=== PATIENT | female | born 1960 | race African-American/Black ===

== ENCOUNTER 2023-06-30 19:20 | Inpatient (IN) | payer BC ==
[~2023-06-30] VITALS: Ht 170.2 cm; Wt 87.2 kg
[2023-06-30] MEDS ORDERED: levoFLOXacin 750MG/D5W 150 ML IV ONE ×2 (19:30→21:12)
[2023-06-30 19:44] LABS: ABG BASE EXCESS 0.3 mmol/L (-2.0-2.0); ABG HCO3 23.7 mmol/L (22.0-26.0); ABG PCO2 34.5 mmHg (35.0-48.0); ABG PH 7.455 (7.340-7.440); ABG SITE RIGHT RADIAL; ABG TOTAL HEMOGLOBIN 13.3 G/dL (12.0-16.0); AaDO2 95.1 mmHg; COHb 0.7 % (0.0-3.9); MetHb 0.2 % (0.0-1.5); O2Hb 93.6 % (94.0-97.0)
[2023-06-30] MEDS ORDERED: FERR-68 GT (19:47)
[2023-06-30] MEDS ORDERED: MULT-213 GT (19:47)
[2023-06-30] MEDS ORDERED: LORA0.5T48 GT (19:47)
[2023-06-30] MEDS ORDERED: FURO-152 GT (19:47)
[2023-06-30] MEDS ORDERED: METO50TA16 GT (19:47)
[2023-06-30] MEDS ORDERED: ASCO500C18 GT (19:47)
[2023-06-30] MEDS ORDERED: OMEP20TA20 GT (19:47)
[2023-06-30] MEDS ORDERED: MAGN400O6 GT (19:47)
[2023-06-30] MEDS ORDERED: AMLO-212 GT (19:47)
[2023-06-30] MEDS ORDERED: APIX5TAB GT (19:47)
[2023-06-30] MEDS ORDERED: LEVE100S GT (19:47)
[2023-06-30] MEDS ORDERED: CRAN450T9 GT (19:47)
[2023-06-30] MEDS ORDERED: DOCU100T2 GT (19:47)
[2023-06-30] MEDS ORDERED: ACET-73 GT ×2 (19:47)
[2023-06-30] MEDS ORDERED: LISPRO INSULIN (19:47)
[2023-06-30] MEDS ORDERED: LISI10TA29 GT (19:47)
[2023-06-30 19:53] LABS: BASOPHILS % (AUTO) 0.4 % (0.0-2.0); HEMATOCRIT 38.3 % (31.2-41.9); HEMOGLOBIN 11.8 g/dL (10.9-14.3); LYMPHOCYTES # (AUTO) 0.6 K/uL (0.8-4.8); LYMPHOCYTES % (AUTO) 4.8 % (20.5-51.5); MEAN CORPUSCULAR HEMOGLOBIN 22.6 uug (24.7-32.8); MEAN CORPUSCULAR HGB CONC 31 g/dL (32.3-35.6); MEAN CORPUSCULAR VOLUME 73.7 fL (75.5-95.3); MONOCYTES # (AUTO) 1.1 K/uL (0.1-1.30); MONOCYTES % (AUTO) 9.6 % (0.0-11.0); NEUTROPHILS # (AUTO) 9.9 K/uL (1.8-8.9); NEUTROPHILS % (AUTO) 85.2 % (38.5-71.5); PLATELET COUNT (AUTO) 227 K/uL (179-408); RED CELL DISTRIBUTION WIDTH 18.4 % (12.3-17.7); WHITE BLOOD COUNT (AUTO) 11.6 K/uL (3.8-11.8)
[2023-06-30 19:54] LABS: DIFFERENTIAL COMMENT 1
[2023-06-30 20:03] LABS: CALCIUM 9.3 mg/dL (8.5-10.1); CARBON DIOXIDE 25 mmol/L (21-32); CHLORIDE 108 mmol/L (98-107); CREATININE 1.1 mg/dL (0.6-1.3); GLUCOSE 155 mg/dL (74-106); POTASSIUM 3.5 mmol/L (3.5-5.1); SODIUM SERUM 146 mmol/L (136-145); UREA NITROGEN, BLOOD 32 mg/dL (7-18)
[2023-06-30 20:17] LABS: ALANINE AMINOTRANSFERASE 30 U/L (14-59); ALBUMIN 3.2 g/dL (3.4-5.0); ALKALINE PHOSPHATASE 124 U/L (50-136); ASPARTATE AMINOTRANSFERASE 18 U/L (15-37); BILIRUBIN,DIRECT 0.1 mg/dL (0.0-0.2); BILIRUBIN,TOTAL 0.3 mg/dL (0.2-1.0); NT-PRO BNP 3548 pg/mL (0-125); TOTAL PROTEIN, SERUM 7.7 g/dL (6.4-8.2)
[2023-06-30] MEDS ORDERED: ENOXAPARIN SODIUM 80 MG/0.8 ML DISP.SYRIN SQ ONE (20:45)
[2023-06-30] MEDS ORDERED: IV NORMAL SALINE 250 ML IV ONE (21:03)
[2023-06-30] MEDS ORDERED: IOHEXOL 350 100 ML INFUS..BTL ONE (21:03)
[2023-06-30] MEDS ORDERED: SWABABLE VALVE TRANSFER SET EA MC ONE (21:03)
[2023-07-01] VITALS (16 sets, daily range): BP systolic 109–153; BP diastolic 54–102; TEMP 98.8–99.5; O2SAT 92–100
[2023-07-01] MEDS ORDERED: LIDOCAINE 1%-EPI 1:100,000 20 ML VIAL ONE (00:29)
[2023-07-01] MEDS ORDERED: IV NORMAL SALINE 1000 ML BAG IV ONE (01:15)
[2023-07-01] MEDS ORDERED: ASPIRIN 81 MG TAB.CHEW PO ONE (01:15)
[2023-07-01] MEDS ORDERED: ASPIRIN 81 MG TAB.CHEW ONE (01:53)
[2023-07-01 02:59] LABS: *BILIRUBIN,URIN NEGATIVE (NEGATIVE); *BLOOD, URINE NEGATIVE (NEGATIVE); *CLARITY,URINE CLEAR (CLEAR); *COLOR,URINE YELLOW (YELLOW); *KETONES,URINE NEGATIVE (NEGATIVE); *PROTEIN,URINE 1+ (NEGATIVE); *UROBILINOGEN,URINE 0.2 E.U./dl (NORMAL); LEUKOCYTE ESTERASE ,URINE NEGATIVE (NEGATIVE); NITRITE, URINE NEGATIVE (NEGATIVE); PH,URINE 5.5 (5.0-8.0); UGLUCOSE NEGATIVE (NEGATIVE)
[2023-07-01] MEDS ORDERED: ONDANSETRON 4 MG/2 ML VIAL IV PRN (03:30)
[2023-07-01] MEDS ORDERED: MAGNESIUM HYDROXIDE 30 ML LIQUID UDC PO PRN (03:30)
[2023-07-01] MEDS ORDERED: ACETAMINOPHEN 325 MG TABLET PO PRN (03:30)
[2023-07-01] MEDS ORDERED: REMEDY ESSENTIAL ZINC PASTE 113 GM TP PRN (03:30)
[2023-07-01] MEDS ORDERED: PANTOPRAZOLE SODIUM 40 MG TABLET.DR PO SCH (07:00)
[2023-07-01] MEDS ORDERED: PANTOPRAZOLE SODIUM 40 MG TABLET.DR PO ONE (07:03)
[2023-07-01] MEDS ORDERED: APIXABAN 5 MG TABLET PO SCH (09:00)
[2023-07-01 13:17] LABS: BASOPHILS % (AUTO) 0.3 % (0.0-2.0); HEMATOCRIT 36.7 % (31.2-41.9); HEMOGLOBIN 11.5 g/dL (10.9-14.3); LYMPHOCYTES # (AUTO) 0.5 K/uL (0.8-4.8); LYMPHOCYTES % (AUTO) 7.3 % (20.5-51.5); MEAN CORPUSCULAR HEMOGLOBIN 23.1 uug (24.7-32.8); MEAN CORPUSCULAR HGB CONC 31 g/dL (32.3-35.6); MEAN CORPUSCULAR VOLUME 74.2 fL (75.5-95.3); MONOCYTES # (AUTO) 0.7 K/uL (0.1-1.30); MONOCYTES % (AUTO) 9.9 % (0.0-11.0); NEUTROPHILS # (AUTO) 6.1 K/uL (1.8-8.9); NEUTROPHILS % (AUTO) 82.5 % (38.5-71.5); PLATELET COUNT (AUTO) 165 K/uL (179-408); RED BLOOD CELL COUNT(AUTO) 4.96 MIL/uL (3.63-4.92); RED CELL DISTRIBUTION WIDTH 18.4 % (12.3-17.7); WHITE BLOOD COUNT (AUTO) 7.4 K/uL (3.8-11.8)
[2023-07-01 13:23] LABS: DIFFERENTIAL COMMENT 1
[2023-07-01 13:27] LABS: CALCIUM 8.8 mg/dL (8.5-10.1); CREATININE 0.9 mg/dL (0.6-1.3); POTASSIUM 4.2 mmol/L (3.5-5.1)
[2023-07-01 13:33] LABS: ALBUMIN 2.9 g/dL (3.4-5.0); BILIRUBIN,TOTAL 0.3 mg/dL (0.2-1.0); MAGNESIUM 2.2 mg/dL (1.8-2.4); PHOSPHOROUS 2.5 mg/dL (2.5-4.9); TOTAL PROTEIN, SERUM 7.2 g/dL (6.4-8.2)
[2023-07-01 15:02] LABS: THYROID STIMULATING HORMONE 0.842 mIU/mL (0.358-3.740)
[2023-07-01] MEDS ORDERED: IV NORMAL SALINE 250 ML IV PRN (19:00)
[2023-07-01] MEDS ORDERED: DOCUSATE SODIUM 100 MG CAPSULE PO SCH (21:00)
[2023-07-01] MEDS ORDERED: DOCUSATE SODIUM GT SCH (21:00)
[2023-07-01] MEDS: PIPERACILLIN SODIUM/TAZOBACTAM 3.375 G in IV DEXTROSE 5% 100 ML IV SCH (21:22)
[2023-07-01] MEDS: levETIRAcetam 500 MG/5 ML LIQUID UDC GT SCH (21:22)
[2023-07-01] MEDS: DOCUSATE SODIUM 100 MG/10 ML LIQUID UDC GT SCH (21:25)
[2023-07-01] MEDS: ATORVASTATIN 40 MG TABLET GT SCH (21:25)
[2023-07-01] MEDS ORDERED: PIPERACILLIN SODIUM/TAZOBACTAM 3.375 G in IV DEXTROSE 5% 50 ML IV SCH (22:00)
[2023-07-01] MEDS: ACETAMINOPHEN 650 MG/20.3 ML LIQUID UDC GT PRN (23:54)
[2023-07-02] VITALS (19 sets, daily range): BP systolic 90–156; BP diastolic 31–88; TEMP 99–103; O2SAT 94–100
[2023-07-02] MEDS: PIPERACILLIN SODIUM/TAZOBACTAM 3.375 G in IV DEXTROSE 5% 100 ML IV SCH ×3 (05:14→21:34)
[2023-07-02 05:16] LABS: BASOPHILS % (AUTO) 0.4 % (0.0-2.0); HEMATOCRIT 37.6 % (31.2-41.9); HEMOGLOBIN 11.8 g/dL (10.9-14.3); LYMPHOCYTES # (AUTO) 0.7 K/uL (0.8-4.8); LYMPHOCYTES % (AUTO) 14.2 % (20.5-51.5); MEAN CORPUSCULAR HEMOGLOBIN 23.1 uug (24.7-32.8); MEAN CORPUSCULAR HGB CONC 31 g/dL (32.3-35.6); MEAN CORPUSCULAR VOLUME 73.8 fL (75.5-95.3); MONOCYTES # (AUTO) 0.7 K/uL (0.1-1.30); NEUTROPHILS # (AUTO) 3.4 K/uL (1.8-8.9); NEUTROPHILS % (AUTO) 71.4 % (38.5-71.5); PLATELET COUNT (AUTO) 161 K/uL (179-408); RED CELL DISTRIBUTION WIDTH 18.7 % (12.3-17.7); WHITE BLOOD COUNT (AUTO) 4.7 K/uL (3.8-11.8)
[2023-07-02 05:27] LABS: DIFFERENTIAL COMMENT 1
[2023-07-02 05:32] LABS: BILIRUBIN,TOTAL 0.4 mg/dL (0.2-1.0); CALCIUM 8.9 mg/dL (8.5-10.1); MAGNESIUM 2.1 mg/dL (1.8-2.4); PHOSPHOROUS 3.1 mg/dL (2.5-4.9); POTASSIUM 3.7 mmol/L (3.5-5.1); TOTAL PROTEIN, SERUM 7.6 g/dL (6.4-8.2)
[2023-07-02] MEDS: MULTIVITAMINS,THERAPEUTIC TABLET GT SCH (08:30)
[2023-07-02] MEDS: ASCORBIC ACID 500 MG TABLET GT SCH (08:30)
[2023-07-02] MEDS: FUROSEMIDE 20 MG TABLET GT SCH (08:30)
[2023-07-02] MEDS: levETIRAcetam 500 MG/5 ML LIQUID UDC GT SCH ×2 (08:31→20:50)
[2023-07-02] MEDS: APIXABAN 5 MG TABLET GT SCH ×2 (08:31→17:19)
[2023-07-02] MEDS ORDERED: Medication Not On Formulary EA (Multivitamins W-Minerals (Multivitamin With Minerals) 1 GT SCH (09:00)
[2023-07-02] MEDS ORDERED: Medication Not On Formulary EA (Ascorbic Acid (Vitamin C) 500 MG) GT SCH (09:00)
[2023-07-02] MEDS ORDERED: IV NORMAL SALINE 250 ML IV ONE (13:31)
[2023-07-02] MEDS ORDERED: SWABABLE VALVE TRANSFER SET EA MC ONE (13:31)
[2023-07-02] MEDS ORDERED: IOHEXOL 350 100 ML INFUS..BTL ONE (13:31)
[2023-07-02] MEDS: ACETAMINOPHEN 650 MG/20.3 ML LIQUID UDC GT PRN (20:48)
[2023-07-02] MEDS: ATORVASTATIN 40 MG TABLET GT SCH (20:48)
[2023-07-02] MEDS: DOCUSATE SODIUM 100 MG/10 ML LIQUID UDC GT SCH (20:52)
[2023-07-03] VITALS (7 sets, daily range): BP systolic 131–138; BP diastolic 40–81; TEMP 97.4–98.7; O2SAT 93–100
[2023-07-03 05:03] LABS: BASOPHILS % (AUTO) 0.2 % (0.0-2.0); HEMATOCRIT 39.4 % (31.2-41.9); HEMOGLOBIN 12.3 g/dL (10.9-14.3); LYMPHOCYTES # (AUTO) 1.1 K/uL (0.8-4.8); MEAN CORPUSCULAR HGB CONC 31 g/dL (32.3-35.6); MEAN CORPUSCULAR VOLUME 73.8 fL (75.5-95.3); MONOCYTES # (AUTO) 0.9 K/uL (0.1-1.30); NEUTROPHILS # (AUTO) 4.3 K/uL (1.8-8.9); NEUTROPHILS % (AUTO) 68.1 % (38.5-71.5); PLATELET COUNT (AUTO) 144 K/uL (179-408); RED BLOOD CELL COUNT(AUTO) 5.34 MIL/uL (3.63-4.92); RED CELL DISTRIBUTION WIDTH 18.5 % (12.3-17.7); WHITE BLOOD COUNT (AUTO) 6.4 K/uL (3.8-11.8)
[2023-07-03 05:31] LABS: DIFFERENTIAL COMMENT 1
[2023-07-03 05:32] LABS: LYMPHOCYTES % (AUTO) 17.7 % (20.5-51.5)
[2023-07-03 05:38] LABS: CREATININE 0.9 mg/dL (0.6-1.3); MAGNESIUM 1.9 mg/dL (1.8-2.4); PHOSPHOROUS 3.2 mg/dL (2.5-4.9); POTASSIUM 3.3 mmol/L (3.5-5.1)
[2023-07-03] MEDS: PIPERACILLIN SODIUM/TAZOBACTAM 3.375 G in IV DEXTROSE 5% 100 ML IV SCH ×3 (06:18→21:00)
[2023-07-03] MEDS ORDERED: POTASSIUM CHLORIDE 20 MEQ POWDER PACKET GT ONE (07:30)
[2023-07-03] MEDS: levETIRAcetam 500 MG/5 ML LIQUID UDC GT SCH ×2 (09:07→21:00)
[2023-07-03] MEDS: FUROSEMIDE 20 MG TABLET GT SCH (09:08)
[2023-07-03] MEDS: ASCORBIC ACID 500 MG TABLET GT SCH (09:08)
[2023-07-03] MEDS: APIXABAN 5 MG TABLET GT SCH ×2 (09:14→17:28)
[2023-07-03] MEDS: MULTIVITAMINS,THERAPEUTIC TABLET GT SCH (09:17)
[2023-07-03] MEDS: ATORVASTATIN 40 MG TABLET GT SCH (20:59)
[2023-07-03] MEDS: DOCUSATE SODIUM 100 MG/10 ML LIQUID UDC GT SCH (20:59)
[2023-07-03] MEDS: OSELTAMIVIR PHOSPHATE 75 MG CAPSULE PO SCH (21:00)
[2023-07-04] VITALS (9 sets, daily range): BP systolic 113–153; BP diastolic 55–73; TEMP 97–99.3; O2SAT 96–100
[2023-07-04] MEDS ORDERED: OSELTAMIVIR PHOSPHATE 75 MG CAPSULE ONE (00:07)
[2023-07-04] MEDS: PIPERACILLIN SODIUM/TAZOBACTAM 3.375 G in IV DEXTROSE 5% 100 ML IV SCH ×3 (05:01→21:42)
[2023-07-04 05:12] LABS: BASOPHILS % (AUTO) 0.3 % (0.0-2.0); HEMATOCRIT 36.8 % (31.2-41.9); HEMOGLOBIN 11.4 g/dL (10.9-14.3); LYMPHOCYTES # (AUTO) 1.6 K/uL (0.8-4.8); MEAN CORPUSCULAR HGB CONC 31 g/dL (32.3-35.6); MEAN CORPUSCULAR VOLUME 74.7 fL (75.5-95.3); MONOCYTES # (AUTO) 0.8 K/uL (0.1-1.30); NEUTROPHILS # (AUTO) 2.6 K/uL (1.8-8.9); NEUTROPHILS % (AUTO) 51.9 % (38.5-71.5); PLATELET COUNT (AUTO) 128 K/uL (179-408); RED BLOOD CELL COUNT(AUTO) 4.93 MIL/uL (3.63-4.92); RED CELL DISTRIBUTION WIDTH 18.7 % (12.3-17.7); WHITE BLOOD COUNT (AUTO) 5.1 K/uL (3.8-11.8)
[2023-07-04 05:55] LABS: DIFFERENTIAL COMMENT 1; LYMPHOCYTES % (AUTO) 33.8 % (20.5-51.5)
[2023-07-04 06:02] LABS: CALCIUM 8.8 mg/dL (8.5-10.1); CREATININE 0.8 mg/dL (0.6-1.3); MAGNESIUM 2.1 mg/dL (1.8-2.4); PHOSPHOROUS 2.9 mg/dL (2.5-4.9); POTASSIUM 3.4 mmol/L (3.5-5.1)
[2023-07-04] MEDS: FUROSEMIDE 20 MG TABLET GT SCH (08:52)
[2023-07-04] MEDS: OSELTAMIVIR PHOSPHATE 75 MG CAPSULE PO SCH ×2 (08:52→20:28)
[2023-07-04] MEDS: levETIRAcetam 500 MG/5 ML LIQUID UDC GT SCH ×2 (08:52→20:28)
[2023-07-04] MEDS: ASCORBIC ACID 500 MG TABLET GT SCH (08:52)
[2023-07-04] MEDS: MULTIVITAMINS,THERAPEUTIC TABLET GT SCH (08:54)
[2023-07-04] MEDS: APIXABAN 5 MG TABLET GT SCH ×2 (08:54→16:12)
[2023-07-04] MEDS: POTASSIUM CHLORIDE 50 ML IV SCH ×2 (12:05→13:21)
[2023-07-04] MEDS: ATORVASTATIN 40 MG TABLET GT SCH (20:27)
[2023-07-04] MEDS: DOCUSATE SODIUM 100 MG/10 ML LIQUID UDC GT SCH (20:28)
[2023-07-05] VITALS (7 sets, daily range): BP systolic 145–153; BP diastolic 60–81; TEMP 97–97.8; O2SAT 93–98
[2023-07-05] MEDS: PIPERACILLIN SODIUM/TAZOBACTAM 3.375 G in IV DEXTROSE 5% 100 ML IV SCH (05:38)
[2023-07-05 06:04] LABS: BASOPHILS % (AUTO) 0.4 % (0.0-2.0); EOSINOPHILS % (AUTO) 0.1 % (0.0-7.0); HEMATOCRIT 35.9 % (31.2-41.9); HEMOGLOBIN 11.3 g/dL (10.9-14.3); LYMPHOCYTES # (AUTO) 1.3 K/uL (0.8-4.8); LYMPHOCYTES % (AUTO) 27.7 % (20.5-51.5); MEAN CORPUSCULAR HGB CONC 31 g/dL (32.3-35.6); MEAN CORPUSCULAR VOLUME 73.6 fL (75.5-95.3); MONOCYTES # (AUTO) 0.6 K/uL (0.1-1.30); MONOCYTES % (AUTO) 12.8 % (0.0-11.0); NEUTROPHILS # (AUTO) 2.7 K/uL (1.8-8.9); PLATELET COUNT (AUTO) 127 K/uL (179-408); RED BLOOD CELL COUNT(AUTO) 4.88 MIL/uL (3.63-4.92); RED CELL DISTRIBUTION WIDTH 17.9 % (12.3-17.7); WHITE BLOOD COUNT (AUTO) 4.6 K/uL (3.8-11.8)
[2023-07-05 06:13] LABS: DIFFERENTIAL COMMENT 1
[2023-07-05 06:42] LABS: ALBUMIN 2.6 g/dL (3.4-5.0); BILIRUBIN,TOTAL 0.4 mg/dL (0.2-1.0); CREATININE 0.7 mg/dL (0.6-1.3); MAGNESIUM 1.8 mg/dL (1.8-2.4); PHOSPHOROUS 2.4 mg/dL (2.5-4.9); POTASSIUM 3.3 mmol/L (3.5-5.1)
[2023-07-05 06:45] LABS: CALCIUM 8.7 mg/dL (8.5-10.1)
[2023-07-05] MEDS: OSELTAMIVIR PHOSPHATE 75 MG CAPSULE PO SCH ×2 (09:46→22:17)
[2023-07-05] MEDS: levETIRAcetam 500 MG/5 ML LIQUID UDC GT SCH ×2 (09:47→22:20)
[2023-07-05] MEDS: ASCORBIC ACID 500 MG TABLET GT SCH (09:49)
[2023-07-05] MEDS: MULTIVITAMINS,THERAPEUTIC TABLET GT SCH (09:49)
[2023-07-05] MEDS: FUROSEMIDE 20 MG TABLET GT SCH (09:49)
[2023-07-05] MEDS: FERROUS SULFATE 300 MG/5 ML LIQUID UDC GT SCH (10:13)
[2023-07-05] MEDS: METOPROLOL TARTRATE 25 MG TABLET GT SCH ×2 (10:13→22:25)
[2023-07-05] MEDS ORDERED: POTASSIUM CHLORIDE 20 MEQ POWDER PACKET GT ONE (14:00)
[2023-07-05] MEDS ORDERED: AMLODIPINE 5 MG TABLET GT ONE (14:23)
[2023-07-05] MEDS ORDERED: METO25TA6 GT (14:25)
[2023-07-05] MEDS ORDERED: ACET650S26 GT (14:25)
[2023-07-05] MEDS ORDERED: ATOR40TA GT (14:25)
[2023-07-05] MEDS ORDERED: APIX2.5T PO (14:25)
[2023-07-05] MEDS ORDERED: OSEL75CA PO (14:25)
[2023-07-05] MEDS: DOCUSATE SODIUM 100 MG/10 ML LIQUID UDC GT SCH (22:24)
[2023-07-05] MEDS: ATORVASTATIN 40 MG TABLET GT SCH (22:25)
[2023-07-05] MEDS: APIXABAN 2.5 MG TABLET PO SCH (22:26)
[2023-07-06 00:01] VITALS: BP 144/40; TEMP 97.7; O2SAT 96
[2023-07-06] MEDS: levETIRAcetam 500 MG/5 ML LIQUID UDC GT SCH (08:20)
[2023-07-06] MEDS: FERROUS SULFATE 300 MG/5 ML LIQUID UDC GT SCH (08:20)
[2023-07-06] MEDS: FUROSEMIDE 20 MG TABLET GT SCH (08:20)
[2023-07-06] MEDS: MULTIVITAMINS,THERAPEUTIC TABLET GT SCH (08:21)
[2023-07-06] MEDS: METOPROLOL TARTRATE 25 MG TABLET GT SCH (08:21)
[2023-07-06] MEDS: ASCORBIC ACID 500 MG TABLET GT SCH (08:21)
[2023-07-06] MEDS: APIXABAN 2.5 MG TABLET PO SCH (08:23)
[2023-07-06] MEDS: OSELTAMIVIR PHOSPHATE 75 MG CAPSULE PO SCH (08:24)
[2023-07-06 09:00] VITALS: BP 145/75; TEMP 98; O2SAT 98
== END 2023-07-06 10:10 | DRG 720 ==
LOC: ER 19:23 → TRANSITION 23:04 → CCU 07-01 07:18
PROVIDERS: ADMIT Student in an Organized Health Care Education/Training Program; ATTEND Internal Medicine
PROC: 05HC33Z Insertion of Infusion Device into Left Basilic Vein, Percutaneous Approach (ICD-10-PCS; principal; 2023-07-04)
DX: A41.9 Sepsis, unspecified organism (principal); J96.01 Acute respiratory failure with hypoxia; N17.0 Acute kidney failure with tubular necrosis; J69.0 Pneumonitis due to inhalation of food and vomit; G93.40 Encephalopathy, unspecified; I21.4 Non-ST elevation (NSTEMI) myocardial infarction; E44.0 Moderate protein-calorie malnutrition; R16.0 Hepatomegaly, not elsewhere classified; D68.59 Other primary thrombophilia; I48.0 Paroxysmal atrial fibrillation; I69.351 Hemiplegia and hemiparesis following cerebral infarction affecting right dominant side; G40.909 Epilepsy, unspecified, not intractable, without status epilepticus; J10.1 Influenza due to other identified influenza virus with other respiratory manifestations; Z68.30 Body mass index [BMI] 30.0-30.9, adult; K57.30 Diverticulosis of large intestine without perforation or abscess without bleeding; Z20.822 Contact with and (suspected) exposure to COVID-19; I69.320 Aphasia following cerebral infarction; I69.391 Dysphagia following cerebral infarction; R13.10 Dysphagia, unspecified; Z74.09 Other reduced mobility; R94.31 Abnormal electrocardiogram [ECG] [EKG]; G93.89 Other specified disorders of brain; E78.5 Hyperlipidemia, unspecified; Z93.1 Gastrostomy status; E66.9 Obesity, unspecified; Z79.01 Long term (current) use of anticoagulants; I11.0 Hypertensive heart disease with heart failure; I50.9 Heart failure, unspecified; N31.9 Neuromuscular dysfunction of bladder, unspecified; F01.50 Vascular dementia, unspecified severity, without behavioral disturbance, psychotic disturbance, mood disturbance, and anxiety; Z79.899 Other long term (current) drug therapy; E61.1 Iron deficiency; R73.9 Hyperglycemia, unspecified
CPT/HCPCS: 36415; 36600; 70450; 71045; 83550; 83605; 83690; 83735; 84100; 84443; 84484; 85025; 87040; 93005; 93307; A4606; G0378; J1956; J2405; J2543; J3480; J3490; J7040; Q9967